=== PATIENT | male | born 1935 | race Caucasian/White ===

== ENCOUNTER 2019-03-16 14:18 | Inpatient (IN) | payer MEDICARE, OTHER ==
[~2019-03-16] VITALS: Ht 177.8 cm; Wt 70.3 kg
[2019-03-16] MEDS ORDERED: LISINOPRIL (14:31)
[2019-03-16] MEDS ORDERED: HYDROMORPHONE 1 MG/1 ML DISP.SYRIN IV ONE (15:15)
[2019-03-16] MEDS ORDERED: ONDANSETRON 4 MG/2 ML VIAL IV ONE (15:15)
[2019-03-16] MEDS ORDERED: IV NORMAL SALINE 1000 ML BAG IV ONE (15:15)
[2019-03-16 15:20] LABS: BASOPHILS % (AUTO) 0.2 % (0.0-2.0); EOSINOPHILS % (AUTO) 0.1 % (0.0-7.0); HEMOGLOBIN 13.1 g/dL (12.5-16.3); LYMPHOCYTES # (AUTO) 1.1 K/uL (20.0-40.0); LYMPHOCYTES % (AUTO) 5.8 % (20.5-51.5); MEAN CORPUSCULAR HEMOGLOBIN 28.9 uug (23.8-33.4); MEAN CORPUSCULAR HGB CONC 34 g/dL (32.5-36.3); MEAN CORPUSCULAR VOLUME 86.2 fL (73.0-96.2); MONOCYTES # (AUTO) 1.3 K/uL (2.0-10.0); MONOCYTES % (AUTO) 6.8 % (0.0-11.0); NEUTROPHILS # (AUTO) 16.1 K/uL (1.8-8.9); NEUTROPHILS % (AUTO) 87.1 % (38.5-71.5); PLATELET COUNT (AUTO) 208 K/uL (152-348); RED BLOOD CELL COUNT(AUTO) 4.53 MIL/uL (4.06-5.63); WHITE BLOOD COUNT (AUTO) 18.5 K/uL (3.6-10.2)
[2019-03-16] MEDS ORDERED: ONDANSETRON 4 MG/2 ML VIAL ONE (15:20)
[2019-03-16] MEDS ORDERED: HYDROMORPHONE 1 MG/1 ML DISP.SYRIN ONE (15:20)
[2019-03-16 15:27] LABS: CREATININE 1.3 mg/dL (0.6-1.3); POTASSIUM 4.7 mmol/L (3.5-5.1)
[2019-03-16 15:33] LABS: BILIRUBIN,DIRECT 0.1 mg/dL (0.0-0.2); BILIRUBIN,TOTAL 0.5 mg/dL (0.2-1.0); TOTAL PROTEIN, SERUM 7.7 g/dL (6.4-8.2)
[2019-03-16] MEDS ORDERED: LACT1CAP71 PO (15:43)
[2019-03-16] MEDS ORDERED: OMEG1CAP PO (15:43)
[2019-03-16] MEDS ORDERED: MAGNESIUM (15:43)
[2019-03-16] MEDS ORDERED: CYAN50008 PO (15:43)
[2019-03-16] MEDS ORDERED: ATOR10TA PO (15:43)
[2019-03-16] MEDS ORDERED: LOSA50TA39 PO (15:43)
[2019-03-16] MEDS ORDERED: VITAMIN D3 PO (15:43)
[2019-03-16] MEDS ORDERED: ZINC220C8 PO (15:43)
[2019-03-16] MEDS ORDERED: CALC-764 PO (15:43)
[2019-03-16 16:32] VITALS: BP 149/79
[2019-03-16] MEDS ORDERED: ENALAPRILAT DIHYDRATE 1.25 MG/1 ML VIAL IV PRN (18:15)
[2019-03-16] MEDS ORDERED: ACETAMINOPHEN 650 MG SUPP.RECT RC PRN (18:15)
[2019-03-16] MEDS ORDERED: IV D5 1/2 NS 1000 ML 1,000 ML IV PRN (18:15)
[2019-03-16] MEDS ORDERED: MORPHINE SULFATE 2 MG/1 ML DISP.SYRIN IV PRN (18:15)
[2019-03-16 19:44] LABS: *BILIRUBIN,URIN NEGATIVE (NEGATIVE); *CLARITY,URINE CLEAR (CLEAR); *COLOR,URINE YELLOW (YELLOW); *KETONES,URINE NEGATIVE (NEGATIVE); *UROBILINOGEN,URINE 0.2 E.U./dl (NORMAL); LEUKOCYTE ESTERASE ,URINE NEGATIVE (NEGATIVE); NITRITE, URINE NEGATIVE (NEGATIVE); UGLUCOSE NEGATIVE (NEGATIVE)
[2019-03-16 19:51] LABS: *BLOOD, URINE TRACE (NEGATIVE)
[2019-03-16 20:07] LABS: RBC,URINE 0-3 /HPF (0-3); SQUAMOUS EPITHELIAL CELL,UR FEW /HPF (NONE SEEN); WBC,URINE 0-3 /HPF (0-3)
[2019-03-16 20:08] VITALS: BP 148/89
[2019-03-16] MEDS ORDERED: CEFAZOLIN 1 G VIAL ONE (22:43)
[2019-03-16] MEDS: CEFAZOLIN 1 G in IV DEXTROSE 5% 50 ML IV SCH (22:50)
[2019-03-17 00:51] VITALS: BP 144/73
[2019-03-17 05:02] VITALS: BP 146/72
[2019-03-17] MEDS: CEFAZOLIN 1 G in IV DEXTROSE 5% 50 ML IV SCH ×3 (05:29→21:21)
[2019-03-17 06:18] LABS: BASOPHILS % (AUTO) 0.1 % (0.0-2.0); EOSINOPHILS % (AUTO) 0.1 % (0.0-7.0); HEMATOCRIT 36.4 % (36.7-47.1); HEMOGLOBIN 12.5 g/dL (12.5-16.3); LYMPHOCYTES # (AUTO) 0.7 K/uL (20.0-40.0); LYMPHOCYTES % (AUTO) 4.8 % (20.5-51.5); MEAN CORPUSCULAR HEMOGLOBIN 29.3 uug (23.8-33.4); MEAN CORPUSCULAR HGB CONC 34 g/dL (32.5-36.3); MEAN CORPUSCULAR VOLUME 85.2 fL (73.0-96.2); MONOCYTES # (AUTO) 1.2 K/uL (2.0-10.0); MONOCYTES % (AUTO) 8.8 % (0.0-11.0); NEUTROPHILS # (AUTO) 11.8 K/uL (1.8-8.9); NEUTROPHILS % (AUTO) 86.2 % (38.5-71.5); PLATELET COUNT (AUTO) 178 K/uL (152-348); RED BLOOD CELL COUNT(AUTO) 4.27 MIL/uL (4.06-5.63); WHITE BLOOD COUNT (AUTO) 13.7 K/uL (3.6-10.2)
[2019-03-17 06:39] LABS: BILIRUBIN,TOTAL 0.7 mg/dL (0.2-1.0); CREATININE 1.1 mg/dL (0.6-1.3); MAGNESIUM 1.8 mg/dL (1.8-2.4); PHOSPHOROUS 2.7 mg/dL (2.5-4.9); POTASSIUM 3.7 mmol/L (3.5-5.1); THYROID STIMULATING HORMONE 0.609 mIU/mL (0.358-3.740); TOTAL PROTEIN, SERUM 7.2 g/dL (6.4-8.2)
[2019-03-17] MEDS: PANTOPRAZOLE SODIUM 40 MG VIAL IV SCH (08:16)
[2019-03-17] MEDS ORDERED: LOSA1TAB36 PO (09:07)
[2019-03-17 11:40] VITALS: BP 126/68
[2019-03-17 16:07] VITALS: BP 142/74
[2019-03-17] MEDS: LOSARTAN POTASSIUM 25 MG TABLET PO SCH (16:40)
[2019-03-17] MEDS: IV D5 1/2 NS 1000 ML 1,000 ML IV PRN (17:29)
[2019-03-17 20:05] VITALS: BP 165/87
[2019-03-18] VITALS (10 sets, daily range): BP systolic 105–175; BP diastolic 53–84
[2019-03-18] MEDS: CEFAZOLIN 1 G in IV DEXTROSE 5% 50 ML IV SCH ×2 (05:17→17:09)
[2019-03-18 06:38] LABS: BASOPHILS % (AUTO) 0.2 % (0.0-2.0); EOSINOPHILS % (AUTO) 0.3 % (0.0-7.0); HEMATOCRIT 37.4 % (36.7-47.1); LYMPHOCYTES # (AUTO) 0.8 K/uL (20.0-40.0); LYMPHOCYTES % (AUTO) 7.1 % (20.5-51.5); MEAN CORPUSCULAR HEMOGLOBIN 29.6 uug (23.8-33.4); MEAN CORPUSCULAR HGB CONC 35 g/dL (32.5-36.3); MONOCYTES # (AUTO) 1.2 K/uL (2.0-10.0); MONOCYTES % (AUTO) 10.8 % (0.0-11.0); NEUTROPHILS # (AUTO) 8.9 K/uL (1.8-8.9); NEUTROPHILS % (AUTO) 81.6 % (38.5-71.5); PLATELET COUNT (AUTO) 174 K/uL (152-348); WHITE BLOOD COUNT (AUTO) 10.9 K/uL (3.6-10.2)
[2019-03-18 06:43] LABS: MAGNESIUM 1.7 mg/dL (1.8-2.4); PHOSPHOROUS 2.5 mg/dL (2.5-4.9); POTASSIUM 3.6 mmol/L (3.5-5.1)
[2019-03-18] MEDS ORDERED: POLYMYXIN B SULFATE 500,000 UNITS, BACITRACIN 50,000 UNITS, NORMAL SALINE 20 ML MC ONE ×3 (08:15)
[2019-03-18] MEDS ORDERED: VANCOMYCIN HCL 500 MG VIAL ONE (08:28)
[2019-03-18] MEDS ORDERED: BUPIVACAINE/EPI PF 0.25% 30 ML VIAL ONE (08:29)
[2019-03-18] MEDS ORDERED: HYDROMORPHONE 2 MG/1 ML DISP.SYRIN ONE (09:00)
[2019-03-18] MEDS ORDERED: ROCURONIUM BROMIDE 50 MG/5 ML VIAL ONE (09:00)
[2019-03-18] MEDS ORDERED: DEXAMETHASONE SOD PHOSPHATE 4 MG INJ IV ONE (10:42)
[2019-03-18] MEDS ORDERED: IV LACTATED RINGERS SOLUTION 1,000 ML BAG MC ONE (10:42)
[2019-03-18] MEDS ORDERED: NEOSTIGMINE METHYLSULFATE 10 MG/10 ML VIAL IM ONE (10:42)
[2019-03-18] MEDS ORDERED: SEVOFLURANE 250 ML BOTTLE IH ONE (10:42)
[2019-03-18] MEDS ORDERED: GLYCOPYRROLATE 0.2 MG/ML VIAL IJ ONE (10:42)
[2019-03-18] MEDS ORDERED: ONDANSETRON 4 MG/2 ML VIAL IV ONE (10:42)
[2019-03-18] MEDS ORDERED: PROPOFOL 200 MG/20 ML BOTTLE IV ONE (10:42)
[2019-03-18] MEDS ORDERED: CEFAZOLIN 1 G VIAL IM ONE (10:42)
[2019-03-18] MEDS ORDERED: LIDOCAINE-MPF 2% 5 ML VIAL IJ ONE (10:42)
[2019-03-18] MEDS ORDERED: EPHEDRINE SULFATE 50 MG/ML AMPUL IM ONE (10:42)
[2019-03-18] MEDS ORDERED: KETOROLAC TROMETHAMINE 30 MG INJ IM ONE (10:42)
[2019-03-18] MEDS ORDERED: HYDROCODONE/APAP 10-325 MG TABLET PO PRN (11:15)
[2019-03-18] MEDS: PANTOPRAZOLE SODIUM 40 MG VIAL IV SCH (13:57)
[2019-03-18] MEDS: LOSARTAN POTASSIUM 25 MG TABLET PO SCH ×2 (13:57→17:10)
[2019-03-18] MEDS: MAGNESIUM SULFATE/D5W 100 ML IV SCH ×2 (16:10→19:18)
[2019-03-18] MEDS: ONDANSETRON 4 MG/2 ML VIAL IV PRN (17:11)
[2019-03-19] MEDS: IV D5 1/2 NS 1000 ML 1,000 ML IV PRN ×2 (01:58→20:17)
[2019-03-19] MEDS: CEFAZOLIN 1 G in IV DEXTROSE 5% 50 ML IV SCH (01:58)
[2019-03-19 04:00] VITALS: BP 127/79
[2019-03-19 06:47] LABS: BASOPHILS % (AUTO) 0.1 % (0.0-2.0); HEMATOCRIT 36.4 % (36.7-47.1); HEMOGLOBIN 12.4 g/dL (12.5-16.3); LYMPHOCYTES # (AUTO) 0.7 K/uL (20.0-40.0); LYMPHOCYTES % (AUTO) 3.7 % (20.5-51.5); MEAN CORPUSCULAR HEMOGLOBIN 28.9 uug (23.8-33.4); MEAN CORPUSCULAR HGB CONC 34 g/dL (32.5-36.3); MEAN CORPUSCULAR VOLUME 84.9 fL (73.0-96.2); MONOCYTES # (AUTO) 1.7 K/uL (2.0-10.0); MONOCYTES % (AUTO) 9.3 % (0.0-11.0); NEUTROPHILS # (AUTO) 15.6 K/uL (1.8-8.9); NEUTROPHILS % (AUTO) 86.9 % (38.5-71.5); PLATELET COUNT (AUTO) 210 K/uL (152-348); RED BLOOD CELL COUNT(AUTO) 4.28 MIL/uL (4.06-5.63); WHITE BLOOD COUNT (AUTO) 17.9 K/uL (3.6-10.2)
[2019-03-19] MEDS: MORPHINE SULFATE 2 MG/1 ML DISP.SYRIN IV PRN ×2 (06:57→19:13)
[2019-03-19 07:03] LABS: CARBON DIOXIDE 27 mmol/L (21-32); CHLORIDE 98 mmol/L (98-107); CREATININE 1.1 mg/dL (0.6-1.3); GLUCOSE 169 mg/dL (74-106); MAGNESIUM 2.3 mg/dL (1.8-2.4); PHOSPHOROUS 2.8 mg/dL (2.5-4.9); POTASSIUM 4.1 mmol/L (3.5-5.1); UREA NITROGEN, BLOOD 18 mg/dL (7-18)
[2019-03-19] MEDS: ONDANSETRON 4 MG/2 ML VIAL IV PRN (07:22)
[2019-03-19] MEDS: LOSARTAN POTASSIUM 25 MG TABLET PO SCH ×2 (08:52→16:55)
[2019-03-19] MEDS: PANTOPRAZOLE SODIUM 40 MG VIAL IV SCH (08:52)
[2019-03-19] MEDS ORDERED: IV NORMAL SALINE 500 ML IV ONE (10:30)
[2019-03-19 12:09] VITALS: BP 123/60
[2019-03-19 16:09] VITALS: BP 131/70
[2019-03-19 21:24] VITALS: BP 128/79
[2019-03-20 00:58] VITALS: BP 137/66
[2019-03-20 06:17] VITALS: BP 136/70
[2019-03-20 06:31] LABS: BASOPHILS % (AUTO) 0.2 % (0.0-2.0); EOSINOPHILS # (AUTO) 0.1 K/uL (0.0-0.7); EOSINOPHILS % (AUTO) 0.4 % (0.0-7.0); HEMATOCRIT 33.7 % (36.7-47.1); HEMOGLOBIN 11.6 g/dL (12.5-16.3); LYMPHOCYTES # (AUTO) 0.6 K/uL (20.0-40.0); LYMPHOCYTES % (AUTO) 4.5 % (20.5-51.5); MEAN CORPUSCULAR HEMOGLOBIN 28.9 uug (23.8-33.4); MEAN CORPUSCULAR HGB CONC 35 g/dL (32.5-36.3); MEAN CORPUSCULAR VOLUME 83.7 fL (73.0-96.2); MONOCYTES # (AUTO) 1.5 K/uL (2.0-10.0); MONOCYTES % (AUTO) 11.2 % (0.0-11.0); NEUTROPHILS # (AUTO) 11.3 K/uL (1.8-8.9); NEUTROPHILS % (AUTO) 83.7 % (38.5-71.5); PLATELET COUNT (AUTO) 191 K/uL (152-348); RED BLOOD CELL COUNT(AUTO) 4.02 MIL/uL (4.06-5.63); WHITE BLOOD COUNT (AUTO) 13.5 K/uL (3.6-10.2)
[2019-03-20 06:37] LABS: CARBON DIOXIDE 28 mmol/L (21-32); CHLORIDE 99 mmol/L (98-107); CREATININE 0.9 mg/dL (0.6-1.3); GLUCOSE 146 mg/dL (74-106); POTASSIUM 3.5 mmol/L (3.5-5.1); UREA NITROGEN, BLOOD 16 mg/dL (7-18)
[2019-03-20] MEDS: LOSARTAN POTASSIUM 25 MG TABLET PO SCH ×2 (08:47→17:53)
[2019-03-20] MEDS: PANTOPRAZOLE SODIUM 40 MG VIAL IV SCH (08:47)
[2019-03-20] MEDS: MORPHINE SULFATE 2 MG/1 ML DISP.SYRIN IV PRN (08:49)
[2019-03-20] MEDS: ONDANSETRON 4 MG/2 ML VIAL IV PRN (10:33)
[2019-03-20 11:05] VITALS: BP 120/63
[2019-03-20] MEDS: IV D5 1/2 NS 1000 ML 1,000 ML IV PRN (11:25)
[2019-03-20] MEDS ORDERED: IV NS 1000 ML 1,000 ML IV ONE (13:00)
[2019-03-20] MEDS ORDERED: ACET650S24 RC (15:38)
[2019-03-20] MEDS ORDERED: LOSA25TA3 PO (15:38)
[2019-03-20] MEDS ORDERED: HYDR-3980 PO (15:38)
[2019-03-20 18:30] VITALS: BP 154/85
[2019-03-20 23:08] VITALS: BP 153/75
[2019-03-21 05:25] VITALS: BP 141/70
[2019-03-21] MEDS ORDERED: PANTOPRAZOLE SODIUM 40 MG TABLET.DR PO SCH (07:00)
[2019-03-21] MEDS: LOSARTAN POTASSIUM 25 MG TABLET PO SCH (08:50)
[2019-03-21] MEDS ORDERED: IV NORMAL SALINE 500 ML IV ONE (10:15)
[2019-03-21 12:14] VITALS: BP 137/61
== END 2019-03-21 12:25 | DRG 469 ==
LOC: ER 14:18 → TELE3 15:55 → MEDSURG3 03-20 14:35
PROVIDERS: ADMIT Internal Medicine; ATTEND Internal Medicine
PROC: 0SRS0JA Replacement of Left Hip Joint, Femoral Surface with Synthetic Substitute, Uncemented, Open Approach (ICD-10-PCS; principal; 2019-03-18)
DX: S72.012A Unspecified intracapsular fracture of left femur, initial encounter for closed fracture (principal); N17.0 Acute kidney failure with tubular necrosis; E87.1 Hypo-osmolality and hyponatremia; Y93.39 Activity, other involving climbing, rappelling and jumping off; Y93.89 Activity, other specified; Y92.019 Unspecified place in single-family (private) house as the place of occurrence of the external cause; E78.5 Hyperlipidemia, unspecified; D72.829 Elevated white blood cell count, unspecified; R79.89 Other specified abnormal findings of blood chemistry; I95.1 Orthostatic hypotension; E83.42 Hypomagnesemia; Z79.899 Other long term (current) drug therapy; I10 Essential (primary) hypertension; K21.9 Gastro-esophageal reflux disease without esophagitis; E86.1 Hypovolemia
CPT/HCPCS: 36415; 70030-TC; 71045; 72170; 73501; 73551; 83690; 83735; 84100; 84443; 85025; 85730; 87086; 93005; 93307; A4649; A4663; C1776; C9113; G0378; J0690; J1100; J1170; J1885; J2270; J2405; J2710; J3370; J3475; J3490; J7030; J7040; J7060; J7120

== ENCOUNTER 2019-03-21 09:42 | Inpatient (IN) | payer MEDICARE, OTHER ==
[~2019-03-21] VITALS: Ht 177.8 cm; Wt 70.3 kg
[~2019-03-21 09:42] MED LIST: ACET650S24 RC; ATOR10TA PO; CALC-764 PO; CYAN50008 PO; HYDR-3980 PO; LACT1CAP71 PO; LOSA1TAB36 PO; LOSA25TA3 PO; LOSA50TA39 PO; MAGNESIUM; OMEG1CAP PO; VITAMIN D3 PO; ZINC220C8 PO
--- NOTE | 2019-03-21 12:45 | NUR ---
Admitted from [facility] 3rd floor accompanied by RN, patient awake, alert x4. With pain over left hip and leg rated as 2/10. Not in any form of distress. Air mattress in place. With Son at bedside. Oriented to unit and therapy. Instructed on use of call light. Dr. Anthony informed of admission. Routine admission care done
[2019-03-21] MEDS ORDERED: MAGNESIUM HYDROXIDE 30 ML LIQUID UDC PO PRN (13:30)
[2019-03-21] MEDS ORDERED: Z GUARD REMEDY PASTE 57 GM TUBE TOP PRN (13:30)
[2019-03-21 14:14] VITALS: BP 139/60
[2019-03-21 14:40] VITALS: BP_SYST 129; BP_SYST 139; BP_DIAS 60; BP_DIAS 99
--- NOTE | 2019-03-21 14:43 | NUR ---
Informed Dr Lynch of admission and requested for medication reconciliation.
--- NOTE | 2019-03-21 16:14 | NUR ---
Dr Lynch confirmed and said OK for medication reconciliation.
[2019-03-21 16:40] VITALS: BP 135/51
[2019-03-21 19:48] VITALS: BP 142/67
[2019-03-21] MEDS: ACETAMINOPHEN 325 MG TABLET PO PRN (20:04)
--- NOTE | 2019-03-21 21:08 | NUR ---
Received pt resting in bed. AAO x4. No acute distress noted. Denies pain/ discomfort at this time. Pt's temp 99.7, cooling measures provided and Tylenol given. Notified Dr. Lynch for follow up regarding med recon. Safety measures maintained. Call light and personal belongings within reach. Will continue to monitor.
[2019-03-21] MEDS ORDERED: ACETAMINOPHEN 650 MG SUPP.RECT RC PRN (22:15)
[2019-03-21] MEDS: ATORVASTATIN 10 MG TABLET PO SCH (22:20)
[2019-03-22 04:50] VITALS: BP 105/69
[2019-03-22 07:59] VITALS: BP 145/75
[2019-03-22] MEDS: LOSARTAN POTASSIUM 25 MG TABLET PO SCH ×2 (08:18→17:12)
[2019-03-22] MEDS: ZINC SULFATE 220 MG CAPSULE PO SCH (08:18)
[2019-03-22] MEDS: OMEGA-3 FATTY ACIDS/FISH OIL CAPSULE PO SCH (08:19)
[2019-03-22] MEDS: CALCIUM CARBONATE 500 MG TABLET PO SCH (08:19)
[2019-03-22] MEDS: CYANOCOBALAMIN 1,000 MCG TABLET PO SCH (08:19)
[2019-03-22] MEDS: CULTURELLE CAPSULE PO SCH (09:18)
--- NOTE | 2019-03-22 10:06 | NUR ---
Patient complained of dizziness and noted with BP 97/46, HR 85, notified Dr. Syed Woods and saw patient with no new order.
[2019-03-22] MEDS: HYDROCODONE/APAP 10-325 MG TABLET PO PRN (13:53)
[2019-03-22] MEDS: ACETAMINOPHEN 325 MG TABLET PO PRN ×2 (14:00→23:16)
--- NOTE | 2019-03-22 14:27 | NUR ---
INTERDISCIPLINARY TEAM CONFERENCE
[2019-03-22 15:42] VITALS: BP 136/66
[2019-03-22] MEDS: ATORVASTATIN 10 MG TABLET PO SCH (20:08)
--- NOTE | 2019-03-22 20:28 | NUR ---
Received pt resting in bed. AAO x4. Family at bedside. No acute distress noted. Denies pain/ discomfort at this time. Due med given as ordered. Safety measures maintained. Call light and personal belongings within reach. Will continue to monitor.
[2019-03-22 21:20] VITALS: BP 120/69
[2019-03-23 05:54] VITALS: BP 156/84
[2019-03-23 08:00] VITALS: BP 143/68
[2019-03-23] MEDS: OMEGA-3 FATTY ACIDS/FISH OIL CAPSULE PO SCH (09:03)
[2019-03-23] MEDS: CALCIUM CARBONATE 500 MG TABLET PO SCH (09:03)
[2019-03-23] MEDS: CULTURELLE CAPSULE PO SCH (09:03)
[2019-03-23] MEDS: ZINC SULFATE 220 MG CAPSULE PO SCH (09:03)
[2019-03-23] MEDS: CYANOCOBALAMIN 1,000 MCG TABLET PO SCH (09:03)
[2019-03-23] MEDS: LOSARTAN POTASSIUM 25 MG TABLET PO SCH ×2 (09:04→16:50)
[2019-03-23] MEDS: HYDROCODONE/APAP 10-325 MG TABLET PO PRN ×2 (09:05→20:25)
[2019-03-23 15:58] VITALS: BP 122/64
--- NOTE | 2019-03-23 19:40 | NUR ---
Patient received in bed. AAO x4. Able to make needs known. No acute distress or SOB noted. On room air. Complained of pain on the left hip, rated 7/10 on numeric scale. Abductor pillow in place. DVT pump working. IV line on his left hand, no sign of inflammation. Physical assessment done. Safety measures observed. Fall precaution maintained. All needs attended promptly. Bed in low position, side rails up x2 for safety, brake and alarm on. Call light and personal belongings within reach. Continue to monitor.
[2019-03-23 19:46] VITALS: BP 151/77
[2019-03-23] MEDS: ATORVASTATIN 10 MG TABLET PO SCH (20:23)
[2019-03-24 07:56] VITALS: BP 138/69
--- NOTE | 2019-03-24 08:18 | NUR ---
Patient noted resting in bed, complaints of pain, prn norco 10 MG given for hip pain, took all AM medications, no signs of distress noted, call light in reach, bed locked and in lowest position, all needs met
[2019-03-24] MEDS: LOSARTAN POTASSIUM 25 MG TABLET PO SCH ×2 (08:53→16:03)
[2019-03-24] MEDS: CULTURELLE CAPSULE PO SCH (08:53)
[2019-03-24] MEDS: OMEGA-3 FATTY ACIDS/FISH OIL CAPSULE PO SCH (08:57)
[2019-03-24] MEDS: CYANOCOBALAMIN 1,000 MCG TABLET PO SCH (08:57)
[2019-03-24] MEDS: CALCIUM CARBONATE 500 MG TABLET PO SCH (08:57)
[2019-03-24] MEDS: ZINC SULFATE 220 MG CAPSULE PO SCH (08:57)
[2019-03-24] MEDS: HYDROCODONE/APAP 10-325 MG TABLET PO PRN ×3 (08:58→22:05)
--- NOTE | 2019-03-24 12:57 | NUR ---
INDIVIDUALIZE PLAN OF CARE
[2019-03-24 16:43] VITALS: BP 160/81
--- NOTE | 2019-03-24 19:35 | NUR ---
Patient received in bed. AAO x4. Able to make needs known. No acute distress or SOB noted. On room air. Complained of pain on the left hip, rated 3/10 on numeric scale. DVT pump working. IV line on his left hand, no sign of inflammation. Physical assessment done. Safety measures observed. Fall precaution maintained. Bed in low position, side rails up x2 for safety, brake and alarm on. Call light and personal belongings within reach. Continue to monitor.
[2019-03-24] MEDS ORDERED: hydrALAZINE HCL 10 MG TABLET PO SCH (20:15)
[2019-03-24 20:30] VITALS: BP 177/91
[2019-03-24] MEDS ORDERED: hydrALAZINE HCL 10 MG TABLET ONE (20:57)
[2019-03-24] MEDS: ATORVASTATIN 10 MG TABLET PO SCH (21:03)
--- NOTE | 2019-03-24 21:10 | NUR ---
Patient developed high BP, Checked two times: 177/91 and 187/96, HR: 78. No complain of other symptoms. No PRN medication for BP. Contacted the medical center on-call. Got order of Hydralazine 10 mg tab PO once per Orlanod Valera WASHROOM OPERATOR. Medication given. Continue to monitor.
--- NOTE | 2019-03-24 22:05 | NUR ---
Patient complained of pain on the left hip, rated 7/10 on numeric scale. Narco 10-325 mg given. Rechecked BP: 176/78. No other symptoms presented. Comfortable measures applied. Continue to monitor.
[2019-03-24] MEDS ORDERED: CLONIDINE HCL 0.1 MG TABLET PO ONE (23:00)
--- NOTE | 2019-03-24 23:05 | NUR ---
Rechecked BP two times, still high. BP: 196/97 and 220/101, HR: 87. No other symptoms. Neurologic assessment was intact. Contacted [facility] on-call and got order of Clonidine 0.1 mg tab PO once per Orlando Valera NP. Continue to monitor closely.
--- NOTE | 2019-03-25 01:30 | NUR ---
Rechecked BP multiple times, @ 2345: 183/96, @ 0030: 171/85, and @ 0115: 159/90. HR: 81-86. No other symptoms. Neurologic assessment intact. Patient stated more comfortable without pain. Continue to monitor.
[2019-03-25] MEDS ORDERED: CLONIDINE HCL 0.1 MG TABLET PO SCH (05:15)
--- NOTE | 2019-03-25 05:29 | NUR ---
Per CONSTRUCTION PROJECT ASSISTANT vitals, patient developed high BP:171/91, HR:89, No other symptoms. Called [facility] on-call. Got order from Magda Henry NP of Clonidine 0.1 mg PO Q6HPRN for SBP> 160. Medication given. Will recheck the BP. Continue to monitor and will endorse to the oncoming nurse accordingly.
[2019-03-25 05:46] VITALS: BP 171/91
[2019-03-25] MEDS ORDERED: CLONIDINE HCL 0.1 MG TABLET PO PRN (06:45)
--- NOTE | 2019-03-25 07:02 | NUR ---
Rechecked BP: 148/84, HR: 85. Continue to monitor and will endorse to the day shift nurse.
[2019-03-25 08:02] VITALS: BP 125/86
--- NOTE | 2019-03-25 09:31 | NUR ---
Patient noted resting in bed with eyes closed, will AM medications when patient is awake, no signs of distress noted, call light in reach, bed locked and in lowest position, all needs met
[2019-03-25] MEDS: ZINC SULFATE 220 MG CAPSULE PO SCH (09:57)
[2019-03-25] MEDS: OMEGA-3 FATTY ACIDS/FISH OIL CAPSULE PO SCH (09:57)
[2019-03-25] MEDS: CYANOCOBALAMIN 1,000 MCG TABLET PO SCH (09:57)
[2019-03-25] MEDS: CALCIUM CARBONATE 500 MG TABLET PO SCH (09:57)
[2019-03-25] MEDS: CULTURELLE CAPSULE PO SCH (09:57)
[2019-03-25] MEDS: HYDROCODONE/APAP 10-325 MG TABLET PO PRN (09:58)
[2019-03-25] MEDS: LOSARTAN POTASSIUM 25 MG TABLET PO SCH (09:59)
[2019-03-25 15:51] VITALS: BP 119/66
[2019-03-25] MEDS: MIRALAX 17 GM POWD.PACK PO PRN (17:20)
[2019-03-25] MEDS ORDERED: METOCLOPRAMIDE HCL 10 MG TABLET PO PRN (18:45)
--- NOTE | 2019-03-25 19:30 | NUR ---
Received pt alert, awake and orientedx4. Pt shows no signs of acute distress. Iv intact and on saline lock. Safety and comfort provided. will continue to monitor.
[2019-03-25 19:40] VITALS: BP 146/72
[2019-03-25] MEDS: LOSARTAN POTASSIUM 50 MG TABLET PO SCH (20:41)
[2019-03-25] MEDS: ATORVASTATIN 10 MG TABLET PO SCH (20:41)
[2019-03-26] MEDS: HYDROCODONE/APAP 10-325 MG TABLET PO PRN ×2 (02:37→20:29)
--- NOTE | 2019-03-26 04:18 | NUR ---
At 0237h [place] given. Pt had 8/10 left hip pain. Pt tolerated the medication. Safety and comfort provided. Will continue to monitor.
[2019-03-26 04:49] VITALS: BP 130/67
--- NOTE | 2019-03-26 05:48 | NUR ---
Pt slept throughout the shift. Prescribed medication given and pt tolerated it well. PRN pain medication given and pt tolerated it well. Pt shows no signs of acute distress. Safety and comfort provided. All needs are met. Will endorse to incoming nurse for continuity of care.
[2019-03-26] MEDS: PANTOPRAZOLE SODIUM 40 MG TABLET.DR PO SCH (06:01)
[2019-03-26 06:52] LABS: BASOPHILS # (AUTO) 0.1 K/uL (0.0-8.0); BASOPHILS % (AUTO) 0.4 % (0.0-2.0); EOSINOPHILS # (AUTO) 0.4 K/uL (0.0-0.7); HEMATOCRIT 34.3 % (36.7-47.1); HEMOGLOBIN 11.5 g/dL (12.5-16.3); LYMPHOCYTES # (AUTO) 1.4 K/uL (20.0-40.0); LYMPHOCYTES % (AUTO) 11.6 % (20.5-51.5); MEAN CORPUSCULAR HEMOGLOBIN 28.8 uug (23.8-33.4); MEAN CORPUSCULAR HGB CONC 34 g/dL (32.5-36.3); MEAN CORPUSCULAR VOLUME 85.7 fL (73.0-96.2); MONOCYTES # (AUTO) 1.1 K/uL (2.0-10.0); MONOCYTES % (AUTO) 8.6 % (0.0-11.0); NEUTROPHILS # (AUTO) 9.4 K/uL (1.8-8.9); NEUTROPHILS % (AUTO) 76.4 % (38.5-71.5); PLATELET COUNT (AUTO) 337 K/uL (152-348); RED BLOOD CELL COUNT(AUTO) 4.01 MIL/uL (4.06-5.63); WHITE BLOOD COUNT (AUTO) 12.3 K/uL (3.6-10.2)
[2019-03-26 07:15] LABS: ALANINE AMINOTRANSFERASE 41 U/L (16-63); ALKALINE PHOSPHATASE 101 U/L (50-136); ASPARTATE AMINOTRANSFERASE 34 U/L (15-37); BILIRUBIN,TOTAL 0.8 mg/dL (0.2-1.0); CARBON DIOXIDE 28 mmol/L (21-32); CHLORIDE 98 mmol/L (98-107); CREATININE 0.9 mg/dL (0.6-1.3); GLUCOSE 121 mg/dL (74-106); POTASSIUM 4.2 mmol/L (3.5-5.1); TOTAL PROTEIN, SERUM 6.8 g/dL (6.4-8.2); UREA NITROGEN, BLOOD 14 mg/dL (7-18)
[2019-03-26 07:54] VITALS: BP 127/69
[2019-03-26] MEDS: ZINC SULFATE 220 MG CAPSULE PO SCH (08:00)
[2019-03-26] MEDS: LOSARTAN POTASSIUM 50 MG TABLET PO SCH ×2 (08:00→20:26)
[2019-03-26] MEDS: CULTURELLE CAPSULE PO SCH (08:00)
[2019-03-26] MEDS: CYANOCOBALAMIN 1,000 MCG TABLET PO SCH (08:00)
[2019-03-26] MEDS: CALCIUM CARBONATE 500 MG TABLET PO SCH (08:01)
[2019-03-26] MEDS: OMEGA-3 FATTY ACIDS/FISH OIL CAPSULE PO SCH (08:01)
[2019-03-26 10:22] LABS: CHOLESTEROL 87 mg/dL (<200); HDL CHOLESTEROL 36 mg/dL (40-60); TRIGLYCERIDES 63 MG/DL (30-150)
[2019-03-26 16:13] VITALS: BP 127/70
--- NOTE | 2019-03-26 19:30 | NUR ---
Patient received awake, alert and oriented x 3. v/s stable, c/o pain right hip area. no acute distress noted. fall precautions maintained. call light in reach. will continue to monitor.
[2019-03-26] MEDS: ATORVASTATIN 10 MG TABLET PO SCH (20:27)
--- NOTE | 2019-03-26 20:30 | NUR ---
Administered [place] 10-325 MG 1 tablet for pain as needed. Will monitor
[2019-03-26 20:50] VITALS: BP 132/69
[2019-03-27 05:09] VITALS: BP 126/72
[2019-03-27] MEDS: PANTOPRAZOLE SODIUM 40 MG TABLET.DR PO SCH (06:15)
--- NOTE | 2019-03-27 06:34 | NUR ---
Pt slept throughout the shift. Prescribed medication given and pt tolerated well. PRN pain medication given and pt tolerated it well. Pt shows no signs and symptoms of acute distress. Safety and comfort provided. All needs are met. continue current rehab plan of care.
[2019-03-27] MEDS: CALCIUM CARBONATE 500 MG TABLET PO SCH (08:16)
[2019-03-27] MEDS: CULTURELLE CAPSULE PO SCH (08:16)
[2019-03-27] MEDS: OMEGA-3 FATTY ACIDS/FISH OIL CAPSULE PO SCH (08:16)
[2019-03-27] MEDS: LOSARTAN POTASSIUM 50 MG TABLET PO SCH ×2 (08:16→20:48)
[2019-03-27] MEDS: ZINC SULFATE 220 MG CAPSULE PO SCH (08:16)
[2019-03-27] MEDS: MIRALAX 17 GM POWD.PACK PO PRN (08:17)
[2019-03-27] MEDS: CYANOCOBALAMIN 1,000 MCG TABLET PO SCH (08:17)
[2019-03-27 08:56] VITALS: BP 125/68
--- NOTE | 2019-03-27 09:44 | NUR ---
Received patient awake in bed. Alert and orientedx3-4. Surgical dressing still original. MD Ferris made aware, agreed to change dressing. will continue monitor
--- NOTE | 2019-03-27 10:49 | NUR ---
Patient WBC 12.3 and sodium 133 relayed to MD David. no new order as of this time. not in distress. no complaint of pain/discomfort. will continue monitor
[2019-03-27] MEDS: ACETAMINOPHEN 325 MG TABLET PO PRN (12:26)
--- NOTE | 2019-03-27 15:30 | NUR ---
Patient noted dry blood in surgical wound with agustin. cleanse and change dressing done. no signs of infection noted. will continue monitor
[2019-03-27 16:04] VITALS: BP 136/68
--- NOTE | 2019-03-27 19:46 | NUR ---
Received patient in bed awake and watching TV; Patient is A&O x4 in NO acute distress. skin warm and dry; Left hip surgical site with dressing in place, dry and intact. Vital signs stable for patient; due medications administered as ordered and scheduled and tolerated well. Needs attended, safety measures in place, call light left at bed side and will continue with care.
[2019-03-27 19:55] VITALS: BP 115/61
[2019-03-27] MEDS: ATORVASTATIN 10 MG TABLET PO SCH (20:47)
[2019-03-27] MEDS: HYDROCODONE/APAP 10-325 MG TABLET PO PRN (23:07)
[2019-03-28 04:50] VITALS: BP 114/61
[2019-03-28] MEDS: PANTOPRAZOLE SODIUM 40 MG TABLET.DR PO SCH (06:26)
--- NOTE | 2019-03-28 07:12 | NUR ---
Patient is A&O x4 verbally able to express needs. Respiration is even and unlabored. NO acute distress. Vital signs taken and stable. Due morning meds administered as ordered and scheduled and tolerated well. D/C IV line on right wrist with dressing in place and intact. Skin kept clean and dry; surgical dressing on left hip intact and dry. No complains of pain at this time, call light left at bed side, endorsed to next shift and will continue with care.
[2019-03-28 08:35] VITALS: BP 118/55
[2019-03-28] MEDS: CULTURELLE CAPSULE PO SCH (10:02)
[2019-03-28] MEDS: ZINC SULFATE 220 MG CAPSULE PO SCH (10:02)
[2019-03-28] MEDS: LOSARTAN POTASSIUM 50 MG TABLET PO SCH ×2 (10:02→20:05)
[2019-03-28] MEDS: CYANOCOBALAMIN 1,000 MCG TABLET PO SCH (10:02)
[2019-03-28] MEDS: CALCIUM CARBONATE 500 MG TABLET PO SCH (10:03)
[2019-03-28] MEDS: OMEGA-3 FATTY ACIDS/FISH OIL CAPSULE PO SCH (10:03)
[2019-03-28] MEDS: HYDROCODONE/APAP 10-325 MG TABLET PO PRN ×2 (10:04→21:13)
[2019-03-28] MEDS: ACETAMINOPHEN 325 MG TABLET PO PRN (12:02)
--- NOTE | 2019-03-28 14:57 | NUR ---
Pt received this morning AAOx4, assessed, no acute distress or SOB. Pt c/o pain, [place] 10-325mg administered per PRN orders. Pt reports effective. Pt compliant with all medication administration and therapies as offered. Tylenol administered for headache relief. Plan of care discussed, pt showered, requested left hip dressing be changed as yesterday's day shift nurse had removed original dressing. Surgical incision is well approximated with agustin intact, and no s/s of infection. Bed in locked and lowest position with side rails up x2. Call light and personal items placed within reach. Will continue to monitor for safety.
[2019-03-28 16:36] VITALS: BP 123/64
[2019-03-28] MEDS: MIRALAX 17 GM POWD.PACK PO PRN (17:38)
[2019-03-28 19:37] VITALS: BP 134/69
[2019-03-28] MEDS: ATORVASTATIN 10 MG TABLET PO SCH (20:05)
[2019-03-29 05:10] VITALS: BP 140/73
--- NOTE | 2019-03-29 06:13 | NUR ---
Patient received in bed. AAO x4. No acute distress or SOB noted. Able to make needs known. On room air. Complained of pain on the left hip, rated 7/10 in numeric scale. Pain medication given and was effective. All due medication given and well tolerated. Pain assessed and reassessed after pain medication. All needs attended promptly. Safety measures observed. Fall precaution maintained. Bed in low position, side rails up x2 for safety, brake and alarm on. Call light and personal belongings within reach. Continue to monitor and will endorse to the day shift nurse accordingly.
[2019-03-29] MEDS: PANTOPRAZOLE SODIUM 40 MG TABLET.DR PO SCH (06:18)
[2019-03-29 07:30] VITALS: BP 161/72
[2019-03-29] MEDS: CULTURELLE CAPSULE PO SCH (08:43)
[2019-03-29] MEDS: ZINC SULFATE 220 MG CAPSULE PO SCH (08:43)
[2019-03-29] MEDS: LOSARTAN POTASSIUM 50 MG TABLET PO SCH ×2 (08:43→21:04)
[2019-03-29] MEDS: CYANOCOBALAMIN 1,000 MCG TABLET PO SCH (08:43)
[2019-03-29] MEDS: OMEGA-3 FATTY ACIDS/FISH OIL CAPSULE PO SCH (08:43)
[2019-03-29] MEDS: CALCIUM CARBONATE 500 MG TABLET PO SCH (08:43)
--- NOTE | 2019-03-29 10:55 | NUR ---
INTERDISCIPLINARY TEAM CONFERENCE
[2019-03-29 16:00] VITALS: BP 131/72
[2019-03-29] MEDS: ACETAMINOPHEN 325 MG TABLET PO PRN (16:34)
--- NOTE | 2019-03-29 17:46 | NUR ---
Received patient awake in bed. Alert and orientedx4. Continue therapy for ambulation and ADL ability. tolerated well. Continue pain management if needed. will continue monitor
[2019-03-29 19:58] VITALS: BP 123/73
[2019-03-29] MEDS: ATORVASTATIN 10 MG TABLET PO SCH (21:04)
--- NOTE | 2019-03-30 04:44 | NUR ---
Patient is AAO X4, able to express needs verbally. On room air in No acute distress. Skin warm and dry. No complains of pain at this time. Surgical site on Left hip intact and dry. Due medications administered and tolerated. Pt. on PT/OT services as ordered. Needs attended, call light at bed side and will continue with care.
[2019-03-30 05:38] VITALS: BP 129/72
[2019-03-30] MEDS: ACETAMINOPHEN 325 MG TABLET PO PRN ×2 (05:38→20:51)
[2019-03-30] MEDS: PANTOPRAZOLE SODIUM 40 MG TABLET.DR PO SCH (06:20)
--- NOTE | 2019-03-30 07:55 | NUR ---
Patient noted sitting up in bed eating breakfast, complaints of left hip pain, PRN norco given prior to therapy, no signs of distress noted, call light in reach, bed locked and in lowest position, all needs met at this time
[2019-03-30 07:57] VITALS: BP 113/61
[2019-03-30] MEDS: OMEGA-3 FATTY ACIDS/FISH OIL CAPSULE PO SCH (08:22)
[2019-03-30] MEDS: CULTURELLE CAPSULE PO SCH (08:22)
[2019-03-30] MEDS: CYANOCOBALAMIN 1,000 MCG TABLET PO SCH (08:22)
[2019-03-30] MEDS: CALCIUM CARBONATE 500 MG TABLET PO SCH (08:22)
[2019-03-30] MEDS: HYDROCODONE/APAP 10-325 MG TABLET PO PRN (08:22)
[2019-03-30] MEDS: ZINC SULFATE 220 MG CAPSULE PO SCH (08:22)
[2019-03-30] MEDS: LOSARTAN POTASSIUM 50 MG TABLET PO SCH ×2 (08:23→20:03)
[2019-03-30 15:50] VITALS: BP 124/63
[2019-03-30] MEDS: MIRALAX 17 GM POWD.PACK PO PRN (19:14)
[2019-03-30 19:49] VITALS: BP 141/71
[2019-03-30] MEDS: ATORVASTATIN 10 MG TABLET PO SCH (20:03)
--- NOTE | 2019-03-30 21:25 | NUR ---
Received pt resting in bed and watching tv. AAO x4. No acute distress noted. C/o 3/10 pain on the left hip. PRN Tylenol given as ordered and as per pt request. All due meds given as ordered. Safety measures maintained. Call light and personal belongings within reach. Will continue to monitor.
[2019-03-31 04:50] VITALS: BP 118/61
[2019-03-31] MEDS: PANTOPRAZOLE SODIUM 40 MG TABLET.DR PO SCH (06:15)
[2019-03-31 07:20] LABS: BASOPHILS # (AUTO) 0.1 K/uL (0.0-8.0); BASOPHILS % (AUTO) 0.5 % (0.0-2.0); EOSINOPHILS # (AUTO) 0.1 K/uL (0.0-0.7); EOSINOPHILS % (AUTO) 1.3 % (0.0-7.0); HEMATOCRIT 34.3 % (36.7-47.1); HEMOGLOBIN 11.7 g/dL (12.5-16.3); LYMPHOCYTES # (AUTO) 1.4 K/uL (20.0-40.0); LYMPHOCYTES % (AUTO) 13.3 % (20.5-51.5); MEAN CORPUSCULAR HEMOGLOBIN 29.5 uug (23.8-33.4); MEAN CORPUSCULAR HGB CONC 34 g/dL (32.5-36.3); MEAN CORPUSCULAR VOLUME 86.3 fL (73.0-96.2); MONOCYTES # (AUTO) 0.8 K/uL (2.0-10.0); MONOCYTES % (AUTO) 7.5 % (0.0-11.0); NEUTROPHILS # (AUTO) 8.4 K/uL (1.8-8.9); NEUTROPHILS % (AUTO) 77.4 % (38.5-71.5); PLATELET COUNT (AUTO) 346 K/uL (152-348); RED BLOOD CELL COUNT(AUTO) 3.98 MIL/uL (4.06-5.63); WHITE BLOOD COUNT (AUTO) 10.8 K/uL (3.6-10.2)
--- NOTE | 2019-03-31 07:28 | NUR ---
Patient noted resting bed with eyes closed, no facial cues of pain noted, no signs of distress noted, call light in reach, bed locked and in lowest position, all needs met
[2019-03-31 08:00] VITALS: BP 120/61
[2019-03-31 08:10] LABS: BILIRUBIN,TOTAL 0.5 mg/dL (0.2-1.0); POTASSIUM 4.8 mmol/L (3.5-5.1); TOTAL PROTEIN, SERUM 7.1 g/dL (6.4-8.2)
[2019-03-31] MEDS: CYANOCOBALAMIN 1,000 MCG TABLET PO SCH (08:35)
[2019-03-31] MEDS: ZINC SULFATE 220 MG CAPSULE PO SCH (08:35)
[2019-03-31] MEDS: ASCORBIC ACID 500 MG TABLET PO SCH (08:35)
[2019-03-31] MEDS: HYDROCODONE/APAP 10-325 MG TABLET PO PRN (08:35)
[2019-03-31] MEDS: CULTURELLE CAPSULE PO SCH (08:35)
[2019-03-31] MEDS: LOSARTAN POTASSIUM 50 MG TABLET PO SCH ×2 (08:36→20:00)
[2019-03-31] MEDS: CALCIUM CARBONATE 500 MG TABLET PO SCH (08:36)
[2019-03-31] MEDS: OMEGA-3 FATTY ACIDS/FISH OIL CAPSULE PO SCH (08:36)
[2019-03-31] MEDS: MIRALAX 17 GM POWD.PACK PO PRN (13:49)
[2019-03-31 16:36] VITALS: BP 114/61
[2019-03-31 19:43] VITALS: BP 132/70
[2019-03-31] MEDS: ACETAMINOPHEN 325 MG TABLET PO PRN (19:57)
[2019-03-31] MEDS: ATORVASTATIN 10 MG TABLET PO SCH (20:00)
--- NOTE | 2019-03-31 20:20 | NUR ---
Received pt resting in bed. AAO x4. No acute distress noted. All due meds given as ordered. Safety measures maintained. Call light and personal belongings within reach. Will continue to monitor.
[2019-04-01] MEDS: PANTOPRAZOLE SODIUM 40 MG TABLET.DR PO SCH (06:06)
[2019-04-01 06:10] VITALS: BP 134/65
[2019-04-01 07:30] VITALS: BP 115/69
[2019-04-01] MEDS: OMEGA-3 FATTY ACIDS/FISH OIL CAPSULE PO SCH (08:50)
[2019-04-01] MEDS: CULTURELLE CAPSULE PO SCH (08:50)
[2019-04-01] MEDS: CYANOCOBALAMIN 1,000 MCG TABLET PO SCH (08:50)
[2019-04-01] MEDS: LOSARTAN POTASSIUM 50 MG TABLET PO SCH ×2 (08:51→20:29)
[2019-04-01] MEDS: ZINC SULFATE 220 MG CAPSULE PO SCH (08:51)
[2019-04-01] MEDS: ASCORBIC ACID 500 MG TABLET PO SCH (08:51)
[2019-04-01] MEDS: HYDROCODONE/APAP 10-325 MG TABLET PO PRN (08:51)
[2019-04-01] MEDS: CALCIUM CARBONATE 500 MG TABLET PO SCH (08:52)
--- NOTE | 2019-04-01 12:28 | NUR ---
Patient noted sitting up in bed, PRN norco given for hip pain 5/10, no signs of distress noted, call light in reach, bed locked and in lowest position, all needs met
[2019-04-01 16:50] VITALS: BP 155/70
[2019-04-01] MEDS: MIRALAX 17 GM POWD.PACK PO PRN (17:55)
[2019-04-01 19:57] VITALS: BP 135/74
[2019-04-01] MEDS: ACETAMINOPHEN 325 MG TABLET PO PRN (20:29)
[2019-04-01] MEDS: ATORVASTATIN 10 MG TABLET PO SCH (20:29)
--- NOTE | 2019-04-01 23:00 | NUR ---
Patient alert and oriented x 4, able to express needs verbally. In No acute distress. VS taken and stable. Due medications administered as ordered and scheduled. PRN Tylenol administered for 5/10 pain on left hip and effective, needs attended, safety measures in place, call light left within easy reach and will continue with care.
[2019-04-02 05:11] VITALS: BP 120/66
[2019-04-02] MEDS: PANTOPRAZOLE SODIUM 40 MG TABLET.DR PO SCH (06:04)
--- NOTE | 2019-04-02 06:38 | NUR ---
Patient sleeping at this time, easily arousable. Breathing is even and unlabored. Vital signs taken and stable. Due morning medication administered. No c/o pain at this time. Skin kept clean and dry, needs attended, call light left at bed side and will continue with care.
[2019-04-02 07:30] VITALS: BP 102/61
[2019-04-02] MEDS: OMEGA-3 FATTY ACIDS/FISH OIL CAPSULE PO SCH (08:39)
[2019-04-02] MEDS: ZINC SULFATE 220 MG CAPSULE PO SCH (08:39)
[2019-04-02] MEDS: CYANOCOBALAMIN 1,000 MCG TABLET PO SCH (08:39)
[2019-04-02] MEDS: CULTURELLE CAPSULE PO SCH (08:42)
[2019-04-02] MEDS: LOSARTAN POTASSIUM 50 MG TABLET PO SCH ×2 (08:42→20:07)
[2019-04-02] MEDS: CALCIUM CARBONATE 500 MG TABLET PO SCH (08:42)
[2019-04-02] MEDS: ASCORBIC ACID 500 MG TABLET PO SCH (08:42)
--- NOTE | 2019-04-02 10:56 | NUR ---
Patient continue therapy for unsteady gait, ambulation and ADL ability. not in distress. no complaint voiced this morning. will continue monitor
[2019-04-02 16:00] VITALS: BP 122/68
[2019-04-02] MEDS: ACETAMINOPHEN 325 MG TABLET PO PRN (17:47)
[2019-04-02 19:39] VITALS: BP 117/64
[2019-04-02] MEDS: ATORVASTATIN 10 MG TABLET PO SCH (20:07)
--- NOTE | 2019-04-02 22:00 | NUR ---
resting in bed upon initial rounds. aaox4 no acute distress noted. VSS. denies any pain nor any discomfort. voiding freely in the urinal. Left hip dressing clean dry and intact with agustin. kept comfortable. fall precautions maintained.siderails up for safety.
[2019-04-03 04:40] VITALS: BP 125/64
[2019-04-03] MEDS: PANTOPRAZOLE SODIUM 40 MG TABLET.DR PO SCH (06:05)
[2019-04-03 08:54] VITALS: BP 106/65
--- NOTE | 2019-04-03 09:00 | NUR ---
Received patient, awake alert x4. Resting in bed. Air mattress in place. Assisted to wheelchair for breakfast. Morning care done. Surgical dressing intact and dry with no discharges noted.
[2019-04-03] MEDS: CULTURELLE CAPSULE PO SCH (09:28)
[2019-04-03] MEDS: ACETAMINOPHEN 325 MG TABLET PO PRN (09:28)
[2019-04-03] MEDS: ZINC SULFATE 220 MG CAPSULE PO SCH (09:28)
[2019-04-03] MEDS: ASCORBIC ACID 500 MG TABLET PO SCH (09:28)
[2019-04-03] MEDS: LOSARTAN POTASSIUM 50 MG TABLET PO SCH ×2 (09:28→20:53)
[2019-04-03] MEDS: CALCIUM CARBONATE 500 MG TABLET PO SCH (09:29)
[2019-04-03] MEDS: OMEGA-3 FATTY ACIDS/FISH OIL CAPSULE PO SCH (09:29)
[2019-04-03] MEDS: CYANOCOBALAMIN 1,000 MCG TABLET PO SCH (09:29)
--- NOTE | 2019-04-03 10:45 | NUR ---
Up with occupational therapy, tolerating well. Able to ambulate well with front wheel walker. PRN Tylenol given prior to therapy.
[2019-04-03 15:59] VITALS: BP 101/58
[2019-04-03] MEDS: ATORVASTATIN 10 MG TABLET PO SCH (20:54)
[2019-04-03 20:55] VITALS: BP 103/60
[2019-04-04 05:05] VITALS: BP 120/63
[2019-04-04] MEDS: PANTOPRAZOLE SODIUM 40 MG TABLET.DR PO SCH (06:33)
[2019-04-04] MEDS: OMEGA-3 FATTY ACIDS/FISH OIL CAPSULE PO SCH (08:27)
[2019-04-04] MEDS: CALCIUM CARBONATE 500 MG TABLET PO SCH (08:27)
[2019-04-04] MEDS: ASCORBIC ACID 500 MG TABLET PO SCH (08:27)
[2019-04-04] MEDS: CULTURELLE CAPSULE PO SCH (08:27)
[2019-04-04] MEDS: CYANOCOBALAMIN 1,000 MCG TABLET PO SCH (08:27)
[2019-04-04] MEDS: ZINC SULFATE 220 MG CAPSULE PO SCH (08:27)
[2019-04-04] MEDS: LOSARTAN POTASSIUM 50 MG TABLET PO SCH ×2 (08:30→20:30)
[2019-04-04 08:34] VITALS: BP 141/79
[2019-04-04 17:46] VITALS: BP 129/62
--- NOTE | 2019-04-04 18:56 | NUR ---
Patient has been cooperative with care throughout day, ambulating on own to restroom with walker. Patient tolerating well and determined to be independent due to upcoming discharge plans. Patient currently in bed, no distress noted at this time, bed in low position, side rails up x2. Call light in reach.
[2019-04-04] MEDS: ATORVASTATIN 10 MG TABLET PO SCH (20:29)
[2019-04-04 22:01] VITALS: BP 110/61
[2019-04-05 04:00] VITALS: BP 124/73
--- NOTE | 2019-04-05 05:28 | NUR ---
aaox4 needs attended. VSS Left hip dressing clean dry and intact. patient has a follow up appointment with Dr Ferris today. Voiding well. Kept comfortable. Fall precautions maintained. Siderails up for safety.
[2019-04-05] MEDS: PANTOPRAZOLE SODIUM 40 MG TABLET.DR PO SCH (06:08)
[2019-04-05 07:30] VITALS: BP 124/65
[2019-04-05] MEDS: ZINC SULFATE 220 MG CAPSULE PO SCH (11:35)
[2019-04-05] MEDS: LOSARTAN POTASSIUM 50 MG TABLET PO SCH ×2 (11:35→20:14)
[2019-04-05] MEDS: ASCORBIC ACID 500 MG TABLET PO SCH (11:36)
[2019-04-05] MEDS: ACETAMINOPHEN 325 MG TABLET PO PRN ×2 (11:36→20:14)
[2019-04-05] MEDS: OMEGA-3 FATTY ACIDS/FISH OIL CAPSULE PO SCH (11:37)
[2019-04-05] MEDS: CALCIUM CARBONATE 500 MG TABLET PO SCH (11:38)
[2019-04-05] MEDS: CYANOCOBALAMIN 1,000 MCG TABLET PO SCH (11:38)
[2019-04-05] MEDS: CULTURELLE CAPSULE PO SCH (11:38)
--- NOTE | 2019-04-05 14:51 | NUR ---
(linking done every fri)
[2019-04-05 16:40] VITALS: BP 130/66
--- NOTE | 2019-04-05 19:12 | NUR ---
agustin removed as orderd by md guillen's office. andrew well by pt. no bleeding noted covered with bordered gauze
--- NOTE | 2019-04-05 19:30 | NUR ---
PATIENT RECEIVED IN BED. ALERT AND ORIENTED X 4. FARSI SPEAKING, BUT ABLE TO MAKE NEEDS KNOW IN [place]. PATIENT D/C TOMORROW, AND IN [facility] SPIRITS. REQUESTING TYLENOL FOR BEDTIME MEDICATIONS. NO C/O DISTRESS OR SOB AT THIS TIME. SIDE RAIL UP BILATERALLY FOR SAFETY. WILL CONTINUE TO MONITOR.
[2019-04-05] MEDS: ATORVASTATIN 10 MG TABLET PO SCH (20:14)
[2019-04-05 20:20] VITALS: BP 101/51
[2019-04-06 06:03] VITALS: BP 129/72
[2019-04-06] MEDS: PANTOPRAZOLE SODIUM 40 MG TABLET.DR PO SCH (06:18)
[2019-04-06] MEDS: CALCIUM CARBONATE 500 MG TABLET PO SCH (08:31)
[2019-04-06] MEDS: OMEGA-3 FATTY ACIDS/FISH OIL CAPSULE PO SCH (08:32)
[2019-04-06] MEDS: CYANOCOBALAMIN 1,000 MCG TABLET PO SCH (08:32)
[2019-04-06] MEDS: ACETAMINOPHEN 325 MG TABLET PO PRN (08:33)
[2019-04-06] MEDS: LOSARTAN POTASSIUM 50 MG TABLET PO SCH (08:34)
[2019-04-06] MEDS: ZINC SULFATE 220 MG CAPSULE PO SCH (08:35)
[2019-04-06] MEDS: ASCORBIC ACID 500 MG TABLET PO SCH (08:35)
[2019-04-06] MEDS: CULTURELLE CAPSULE PO SCH (08:42)
[2019-04-06 09:07] VITALS: BP 149/69
[2019-04-06 09:09] VITALS: BP 149/69
--- NOTE | 2019-04-06 19:00 | NUR ---
D/C TO HOME LEFT WITH DAUGHTER AND SON. IN PRIVATE CAR. D/C ORDER ON FILE PICS TAKEN. VSS. VERBALIZE UNDERSTANDING OF D/C INSTRUCTIONS. DAUGHTER WENT TO [facility] TO RN SURGICAL PRESCRIPTIONS PRIOR TO PT D/C FROM HOSPITAL
== END 2019-04-06 17:15 | disposition home health service (06) | DRG 560 ==
PROVIDERS: ADMIT Physical Medicine & Rehabilitation Pain Medicine; ATTEND Physical Medicine & Rehabilitation Pain Medicine
DX: Z47.1 Aftercare following joint replacement surgery (principal); E44.0 Moderate protein-calorie malnutrition; E87.1 Hypo-osmolality and hyponatremia; Z96.642 Presence of left artificial hip joint; E78.5 Hyperlipidemia, unspecified; I10 Essential (primary) hypertension; Z91.81 History of falling; D72.829 Elevated white blood cell count, unspecified; R26.2 Difficulty in walking, not elsewhere classified; Z88.2 Allergy status to sulfonamides; I95.1 Orthostatic hypotension; R68.89 Other general symptoms and signs
CPT/HCPCS: 36415; 73502; 82652; 85025; J8597

== ENCOUNTER 2021-01-17 10:07 | Outpatient (CLI) | payer MEDICARE, OTHER ==
[~2021-01-17 10:07] MED LIST changes: -CYAN50008 PO; +CYAN50009 PO; -LOSA1TAB36 PO; -LOSA50TA39 PO; +ZINC1CAP2 PO; -ZINC220C8 PO
--- NOTE | 2021-01-19 09:29 | NUR ---
REPORT OF THE HIP XRAY THAT WAS ORDERED BY DR. Jina MADISON, WAS FAXED OVER TO HIM EARLY THIS MORNING.
== END 2021-01-17 23:59 | disposition home or self-care (01) ==
LOC: RAD 10:07
DX: I70.202 Unspecified atherosclerosis of native arteries of extremities, left leg (principal); Z96.642 Presence of left artificial hip joint
CPT/HCPCS: 73502